=== PATIENT | female | born 1950 | race Caucasian/White ===

== ENCOUNTER → 2016-04-13 | Outpatient (CLI) | payer BC, MEDICARE ==
--- NOTE | 2016-04-13 09:04 | CT ---
EXAMINATION TYPE: CT sinus wo con DATE OF EXAM: 04/13/2016 7:38 AM COMPARISON: NONE HISTORY: 65-year-old female with sinusitis, pressure, and possible polyp on the left side, Sinusitis CT DLP: 540 mGycm Automated exposure control for dose reduction was used. TECHNIQUE: Noncontrast axial views of the paranasal sinuses were obtained. Coronal reconstructions pe rformed. FINDINGS: There is trace mucosal thickening within both maxillary sinuses. There is a tiny residual possible 3 mm mucosal retention cyst or polyp along the roof of the left maxillary sinus and possible tiny 3 mm polyp or mucosal retention cyst along the roof of the left maxillary sinus. There are postsurgical changes of prior maxillary antrectomy on both sites. No air-fluid level. 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 There is no destruction of the osseous steele of the paranasal sinuses. The osteomeatal complexes are patent. Nasal septum is slightly undulating. Old bilateral nasal bone fractures. The imaged brain, sella, skull base and orbits are normal in appe arance. Mastoid air cells and middle ear cavities are well pneumatized. Reformatted images confirm above findings. IMPRESSION: Postsurgical changes of prior medial maxillary antrectomies. There is trace mucosal thickening throug hout the maxillary sinuses and a tiny 3 mm polyp or mucosal retention cyst along the roof of each max illary sinus.
== END | disposition home or self-care (01) ==
LOC: RADCTMAIN 07:11
PROVIDERS: ATTEND Otolaryngology
DX: J34.89 Other specified disorders of nose and nasal sinuses (principal); Z98.890 Other specified postprocedural states
CPT/HCPCS: 70486

== ENCOUNTER → 2016-12-06 | Outpatient (CLI) | payer MEDICARE | END | disposition home or self-care (01) | LOC: LABWHC1 12:00 | PROVIDERS: ATTEND Orthopaedic Surgery Hand Surgery | DX: Z01.810 Encounter for preprocedural cardiovascular examination (principal); M19.041 Primary osteoarthritis, right hand | CPT/HCPCS: 93005 ==

== ENCOUNTER → 2017-11-09 | Outpatient (CLI) | payer MEDICARE | END | disposition home or self-care (01) | LOC: LABWHC1 12:12 | PROVIDERS: ATTEND Internal Medicine Critical Care Medicine | DX: J45.40 Moderate persistent asthma, uncomplicated (principal) | CPT/HCPCS: 36415; 82785 ==

== ENCOUNTER → 2024-10-16 | Outpatient (CLI) | payer MEDICARE ==
--- NOTE | 2024-11-22 19:59 | P.PCN ---
Date of Procedure: 12/17/24 Operative Findings: Home sleep study report Date of service is 10/16/2024 History This is a 74-year-old female patient who was concerned about obstructive sleep apnea. The patient has history of snoring patient reports that she wakes up with dry mouth and she has also history of grinding and she wears a bite guard. She goes to bed at 10 PM wakes up between 4 and 6 AM in the morning. During the day, the patient feels tired and sleepy. She does not fall asleep while driving. No history of any motor vehicle accidents because of feeling drowsy or sleepy. The patient wanted to screen for sleep apnea. She has a Mallampati class IV. She has moderate persistent bronchial asthma maintained on Symbicort. She also has history of acid reflux. Technical description The [employer] system was used to complete this home sleep study. This is a type III home sleep study evaluation. The total recording duration was 7 hours. This study started at 9:43 PM and ended at 4:43 AM. There was a total of 6 hours and 48 minutes of flow monitoring and 6 hours and 50 minutes of oxygen saturation monitoring. As such, this is an adequate sleep study. Results The respiratory analysis showed a total of 52 obstructive apneas and 73 obstructive hypopneas. The resulting AHI was 18.4 consistent with moderate severe obstructive sleep apnea. Oxygenation No significant oxygen desaturation and patient was able to maintain oxygen saturation above 90% throughout the sleep study. The average pulse ox was 93% during sleep. Based on pulse ox while awake on room air oxygen was 96% Cardiac summary The average heart rate was 74 with a minimum heart rate of 68 and a maximum heart of 98/min Assessment Obstructive sleep apnea moderate severe with an AHI of 18.4. No history of nocturnal oxygen desaturations Snoring Hypersomnia Bronchial asthma Environmental allergies Plan Will discuss findings with the patient.
== END ==
LOC: 3 N SLEEP 16:20
PROVIDERS: ATTEND Internal Medicine Critical Care Medicine
DX: G47.33 Obstructive sleep apnea (adult) (pediatric) (principal); G47.10 Hypersomnia, unspecified; J45.909 Unspecified asthma, uncomplicated